=== PATIENT | male | born 1985 | race Caucasian/White ===

== ENCOUNTER 2019-06-05 10:11 | Emergency (ER) | payer OTHER, SELFPAY ==
[2019-06-05 10:23] VITALS: BP 142/79; PULSE 67; RESP 16; TEMP 36.4; O2SAT 99
--- NOTE | 2019-06-05 10:28 | ED.SKABFB ---
HPI - Skin/Abscess/Foreign Bdy General Chief complaint: Skin/Abscess/Foreign Body Stated complaint: Splinter in the bottom of left heel Time Seen by Provider: 06/05/19 10:40 Source: patient and RN notes reviewed Mode of arrival: ambulatory Limitations: no limitations History of Present Illness HPI narrative: 34 year old male who presents to [facility] with complaints of having piece of wood splinter in his left heel. Patient states that a piece of wood from floor at work splintered and went into the heel of his foot, he was able to remove a piece of it but is unable to get remaining piece that he thinks remains in his foot. Small sliver of wood noted to heel of left foot no acute redness or swelling. Patient states that he is aware of piece when he steps down. Patient states that his tetanus shot is over 10 years old. MD complaint: foreign body Onset (ago): day(s) (last night) Tetanus up to date: no Location: L foot Severity: mild Severity scale (1-10): 1 Quality: aching Pain Consistency: other (weight bearing) Relieving factors: none Exacerbating factors: other (walking) Context: none Associated symptoms: denies other symptoms Treatments prior to arrival: other (removed a piece of wood) Related Data Home Medications Medication Instructions Recorded Confirmed No Home Medications 06/05/19 06/05/19 Allergies Allergy/AdvReac Type Severity Reaction Status Date / Time No Known Allergies Allergy Verified 06/05/19 10:29 Review of Systems Review of Systems: Narrative: CONSTITUTIONAL: Denies fever, chills, or sweats. EYES: Denies visual changes, redness, or discharge. ENT: Denies rhinorrhea, congestion, sore throat, or otalgia. CARDIOVASCULAR: Denies chest pain, palpitations, or edema. RESPIRATORY: Denies cough or dyspnea. GASTROINTESTINAL: Denies abdominal pain, nausea, vomiting, or diarrhea. GENITOURINARY: Denies dysuria or hematuria. SKIN: Denies rash or itching, positive for a piece of wood remaining in heel of left foot. MUSCULOSKELETAL: Denies back pain, joint pain, or myalgia. NEUROLOGIC: Denies headache, numbness, or weakness. PSYCHIATRIC: Denies anxiety or depression. All systems reviewed & are unremarkable except as noted in HPI and below PMFSH Past Medical History Medical History (Updated 02/18/20 @ 10:33 by Flor Garcias NP) No significant past medical history Social History Social History (Updated 06/09/19 @ 10:33 by Flor Garcias NP) Smoking status: Smoker, status unknown Living arrangements: alone Gender identity (if verbalized by the patient): Male Comments At time of signature, agree with nursing past medical, social history. There is no relevant family history pertinent to the presenting complaint Exam Narrative: Exam Narrative: GENERAL: Well-appearing, well-nourished, and in no acute distress. HEAD: Normocephalic, atraumatic. EYES: PERRLA and EOMI. ENT: Nares clear, no rhinorrhea or epistaxis. Mucous membranes moist. NECK: Supple. CHEST: Clear to auscultation. No respiratory distress. HEART: Regular rate and rhythm. No murmur heard. Normal peripheral pulses. ABDOMEN: Soft, nontender, nondistended, normal active bowel sounds. EXTREMITIES: Normal range of motion. No edema. SKIN: Warm, dry, no rash.Foreign body left heel small splinter embedded in foot patient states he removed some of it but unable to get all of piece of wood.minimal discomfort no drainage or redness. NEURO: No focal deficits. Alert and oriented x3. Course Vital Signs Vital signs: Vital Signs Temperature 36.4 C L 06/05/19 10:23 Pulse Rate 67 06/05/19 10:23 Respiratory Rate 16 06/05/19 10:23 Blood Pressure 142/79 H 06/05/19 10:23 Pulse Oximetry 99 06/05/19 10:23 Temperature 36.4 C L 06/05/19 10:23 Pulse Rate 67 06/05/19 10:23 Respiratory Rate 16 06/05/19 10:23 Blood Pressure 142/79 H 06/05/19 10:23 Pulse Oximetry 99 06/05/19 10:23 Procedures Foreign Body Removal Fo
[2019-06-05] MEDS: TETANUS,DIPHTHERIA,AC PERTUSSIS ADULT 0.5 ML (ADACEL) IM (11:07)
== END 2019-06-05 11:30 | disposition home or self-care (01) ==
PROVIDERS: Emergency Provider Registered Nurse
DX: S91.342A Puncture wound with foreign body, left foot, initial encounter (principal); W45.8XXA Other foreign body or object entering through skin, initial encounter; Z23 Encounter for immunization
CPT/HCPCS: 28190; 90471; 90715; 99202; G0463

== ENCOUNTER 2019-07-15 12:34 | Emergency (ER) | payer OTHER, SELFPAY ==
--- NOTE | ~2019-07-15 | XR_ITS ---
EXAMINATION: XR abdomen/kub 1V INDICATION: Right flank pain, painful urination TECHNIQUE: Supine view of the abdomen is obtained. COMPARISON: None FINDINGS: No abnormal calcifications are identified. The bowel gas pattern is normal. The visualized osseous structures are unremarkable IMPRESSION: 1. No radiographic correlate for the patient's symptoms. Reviewed, dictated and finalized at location B.
--- NOTE | 2019-07-15 12:46 | ED.GENADULT ---
HPI - General Adult General Chief complaint: Urogenital-Male Stated complaint: uti Time Seen by Provider: 07/15/19 13:35 Source: patient Mode of arrival: ambulatory Limitations: no limitations History of Present Illness HPI narrative: 34-year-old male presents to the [facility] with complaints of urinary symptoms for the past 2 to 3 weeks. Patient states that he has had some burning with urination as well as right lower bilateral back pain that at times does radiate to the front groin at times. Denies any fevers, chest pain or shortness of breath. Denies any abdominal pain at this time. Patient states he was tested for STDs about 3 weeks ago and came up negative on everything. Patient states he was tested at the [facility]. Patient states he has not had any new partners since being tested 3 weeks ago but continues to have the symptoms. Related Data Home Medications Medication Instructions Recorded Confirmed Men's Multivitamin 07/15/19 Allergies Allergy/AdvReac Type Severity Reaction Status Date / Time No Known Allergies Allergy Verified 06/05/19 10:29 Review of Systems Review of Systems: Narrative: CONSTITUTIONAL: Denies fever, chills, or sweats. EYES: Denies visual changes, redness, or discharge. ENT: Denies rhinorrhea, congestion, sore throat, or otalgia. CARDIOVASCULAR: Denies chest pain, palpitations, or edema. RESPIRATORY: Denies cough or dyspnea. GASTROINTESTINAL: Denies abdominal pain, nausea, vomiting, or diarrhea. GENITOURINARY: Denies dysuria or hematuria. Pain with urination SKIN: Denies rash or itching. MUSCULOSKELETAL: Positive low Back pain, denies joint pain, or myalgia. NEUROLOGIC: Denies headache, numbness, or weakness. PSYCHIATRIC: Denies anxiety or depression. [facility] Past Medical History Medical History No significant past medical history Social History Social History (Updated 06/09/19 @ 10:33 by Flor Garcias NP) Smoking status: Smoker, status unknown Gender identity (if verbalized by the patient): Male Comments At the time of my signature I agree with nursing past medical history, surgical, social, and family history. There is no relevant family history pertinent to the presenting complaint. Exam Narrative: Exam Narrative: GENERAL: Well-appearing, well-nourished, and in no acute distress. HEAD: Normocephalic, atraumatic. EYES: PERRLA and EOMI. ENT: Nares clear, no rhinorrhea or epistaxis. Mucous membranes moist. Bilateral TMs are clear with no erythema or foreign bodies in the canal. Posterior pharynx no erythema, tonsil enlargement, exudates or lesions present. NECK: Supple. No lymphadenopathy CHEST: Clear to auscultation. No respiratory distress. HEART: Regular rate and rhythm. No murmur heard. Normal peripheral pulses. ABDOMEN: Soft, nontender, nondistended, normal active bowel sounds. No CVA tenderness on percussion. EXTREMITIES: Normal range of motion. No edema. SKIN: Warm, dry, no rash. NEURO: No focal deficits. Alert and oriented x3. Course Reevaluation(s) Reevaluation #1: Reevaluated patient after his x-ray was resulted. Notify patient that there is no obvious evidence of a kidney stone. Discussed with him that we will go ahead and try antibiotics to see if this is a UTI and we will send his urine off to the lab for culture. Discussed with patient that if his symptoms continue not to get better than he will need to follow-up with his primary doctor for further investigation of what could be causing his symptoms. Patient verbalized understanding at this time denies any other questions or concerns. Date: 07/15/19 Time: 14:08 Vital Signs Vital signs: Vital Signs Temperature 36.8 C 07/15/19 12:54 Pulse Rate 78 07/15/19 12:54 Respiratory Rate 16 07/15/19 12:54 Blood Pressure 126/78 07/15/19 12:54 Pulse Oximetry 99 07/15/19 12:54 Temperature 36.8 C 07/15/19 12:5
[2019-07-15 12:54] VITALS: BP 126/78; PULSE 78; RESP 16; TEMP 36.8; O2SAT 99
--- NOTE | 2019-07-15 12:54 | PC.NURSE ---
in br to obtain ua spec.
== END 2019-07-15 14:16 | disposition home or self-care (01) ==
PROVIDERS: Emergency Provider Nurse Practitioner Family
DX: R30.0 Dysuria (principal); Z86.61 Personal history of infections of the central nervous system
CPT/HCPCS: 74018; 81003; 87086; 99213; G0463

== ENCOUNTER 2019-10-21 09:07 | Emergency (ER) | payer OTHER, SELFPAY ==
--- NOTE | 2019-10-21 09:21 | ED.GENADULT ---
HPI - General Adult General Chief complaint: Skin/Abscess/Foreign Body Stated complaint: eczema Time Seen by Provider: 10/21/19 09:20 Source: patient Mode of arrival: ambulatory Limitations: no limitations History of Present Illness HPI narrative: 34-year-old male patient presents today express care with complaints of a rash to bilateral hands. Patient states he does have a history of eczema. 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 Discussed with him that the gloves are aggravating his eczema and breaking him out. Patient states he was given a steroid ointment and states he has been through 2 over within the last couple of weeks. Patient denies any rash anywhere else except for the hands at this time. Denies any fevers, chest pain or shortness of breath. Related Data Allergies Allergy/AdvReac Type Severity Reaction Status Date / Time No Known Allergies Allergy Unknown Verified 02/20/15 17:56 Review of Systems Review of Systems: Narrative: CONSTITUTIONAL: Denies fever, chills, or sweats. EYES: Denies visual changes, redness, or discharge. ENT: Denies rhinorrhea, congestion, sore throat, or otalgia. CARDIOVASCULAR: Denies chest pain, palpitations, or edema. RESPIRATORY: Denies cough or dyspnea. GASTROINTESTINAL: Denies abdominal pain, nausea, vomiting, or diarrhea. GENITOURINARY: Denies dysuria or hematuria. SKIN: Positive rash to bilateral hands MUSCULOSKELETAL: Denies back pain, joint pain, or myalgia. NEUROLOGIC: Denies headache, numbness, or weakness. PSYCHIATRIC: Denies anxiety or depression. [facility] Past Medical History Medical History (Updated 10/21/19 @ 09:37 by MARYCARMEN [place]) Eczema Comments At the time of my signature I agree with nursing past medical history, surgical, social, and family history. There is no relevant family history pertinent to the presenting complaint. Exam Narrative: Exam Narrative: GENERAL: Well-appearing, well-nourished, and in no acute distress. HEAD: Normocephalic, atraumatic. EYES: PERRLA and EOMI. ENT: Nares clear, no rhinorrhea or epistaxis. Mucous membranes moist. NECK: Supple. No lymphadenopathy CHEST: Clear to auscultation. No respiratory distress. HEART: Regular rate and rhythm. No murmur heard. Normal peripheral pulses. ABDOMEN: Soft, nontender, nondistended, normal active bowel sounds. EXTREMITIES: Normal range of motion. No edema. SKIN: Patient has patient has red. Neck rash noted to bilateral dorsal hands. The rash does seem to be more and between the webs of the fingers. It is a blotchy rash with some areas very small papules. No open wounds or drainage at this time. NEURO: No focal deficits. Alert and oriented x3. Course Vital Signs Vital signs: Vital Signs Temperature 36.4 C L 10/21/19 09:22 Pulse Rate 73 10/21/19 09:22 Respiratory Rate 16 10/21/19 09:22 Blood Pressure 154/92 H 10/21/19 09:22 Pulse Oximetry 99 10/21/19 09:22 Temperature 36.4 C L 10/21/19 09:22 Pulse Rate 73 10/21/19 09:22 Respiratory Rate 16 10/21/19 09:22 Blood Pressure 154/92 H 10/21/19 09:22 Pulse Oximetry 99 10/21/19 09:22 Vital signs reviewed. The patient has been informed that they may have pre-hypertension or Hypertension based on a BP reading in the department. I recommend that the patient call the primary care provider listed on their discharge instructions or a physician of their choice this week to arrange follow up for further evaluation of possible pre-hypertension or Hypertension Medical Decision Making Differential Diagnosis Differential Diagnosis: Differential diagnosis: Contact dermatitis, poison vinny, poison sumac, psoriasis, eczema, allergic reaction, drug reaction, scabies, tinea syphilis, lung disease, viral exanthema, pityriasis, erythema multiforme. Cussed with patient that we will go ahead and refill his steroid ointment that has been helping his eczem
[2019-10-21 09:22] VITALS: BP 154/92; PULSE 73; RESP 16; TEMP 36.4; O2SAT 99
== END 2019-10-21 09:41 | disposition home or self-care (01) ==
PROVIDERS: Emergency Provider Nurse Practitioner Family; PCP Internal Medicine
DX: L20.9 Atopic dermatitis, unspecified (principal); R03.0 Elevated blood-pressure reading, without diagnosis of hypertension
CPT/HCPCS: 99213; G0463

== ENCOUNTER 2020-09-20 18:36 | Emergency (ER) | payer OTHER, SELFPAY ==
[2020-09-20 18:52] VITALS: BP 153/80; PULSE 87; RESP 16; TEMP 36.6; O2SAT 99
--- NOTE | 2020-09-20 19:36 | ED.SKABFB ---
HPI - Skin/Abscess/Foreign Bdy General Chief complaint: Skin/Abscess/Foreign Body Stated complaint: rash Time Seen by Provider: 09/20/20 19:34 Source: patient and RN notes reviewed Mode of arrival: ambulatory Limitations: no limitations History of Present Illness HPI narrative: Patient presents today requesting a refill of his clobetasol ointment for his eczema. States it has slightly flared due to some increased sun exposure recently. MD complaint: rash and other (Medication refill) Related Data Allergies Allergy/AdvReac Type Severity Reaction Status Date / Time No Known Allergies Allergy Unknown Verified 09/20/20 19:21 Review of Systems Review of Systems: Narrative: CONSTITUTIONAL: Denies body aches, fever, chills, or sweats. EYES: Denies visual changes, redness, or discharge. ENT: Denies rhinorrhea, congestion, sore throat, or otalgia. CARDIOVASCULAR: Denies chest pain, palpitations, or edema. RESPIRATORY: Denies cough or dyspnea. GASTROINTESTINAL: Denies abdominal pain, nausea, vomiting, or diarrhea. GENITOURINARY: Denies dysuria or hematuria. SKIN: Denies itching, or wounds.+ Eczema MUSCULOSKELETAL: Denies back pain, joint pain, or myalgia. NEUROLOGIC: Denies headache, numbness, tingling, or weakness. PSYCH: Denies depression or anxiety. PMFSH Past Medical History Medical History Eczema No significant past medical history Social History Social History Smoking status: Smoker, status unknown Gender identity (if verbalized by the patient): Male Comments At time of signature, I have reviewed and agree with nursing past medical, surgical, social and family history unless otherwise noted. Please see nursing chart for further information. There is no relevant family history pertinent to the presenting complaint Exam Narrative: Exam Narrative: GENERAL: Well-appearing, well-nourished, and in no acute distress. HEAD: Normocephalic, atraumatic. EYES: EOMI. No redness or drainage. Conjunctivae normal. ENT: Mucous membranes pink and moist. NECK: Normal AROM. CHEST: No respiratory distress. EXTREMITIES: Normal range of motion. No edema. SKIN: Warm, dry. Capillary refill normal. Normal skin turgor. Mild to moderate eczematous rash to the dorsum of bilateral hands. NEURO: No focal deficits. Alert and oriented x3. Gait steady. PSYCH: Normal affect. No signs of depression or anxiety. Course Vital Signs Vital signs: Vital Signs Temperature 97.8 F 09/20/20 18:52 Pulse Rate 87 09/20/20 18:52 Respiratory Rate 16 09/20/20 18:52 Blood Pressure 153/80 H 09/20/20 18:52 Pulse Oximetry 99 09/20/20 18:52 Temperature 97.8 F 09/20/20 18:52 Pulse Rate 87 09/20/20 18:52 Respiratory Rate 16 09/20/20 18:52 Blood Pressure 153/80 H 09/20/20 18:52 Pulse Oximetry 99 09/20/20 18:52 Reviewed. Pt has been instructed to follow up with his PCP regarding his elevated blood pressure today. MDM - Skin/Abscess/Foreign Bdy Differential Diagnosis Differential diagnosis: Likely urticaria, cellulitis, eczema, impetigo and contact dermatitis Critical Care Time Critical Care Time Critical Care Time: No Discharge Plan Discharge Clinical Impression: Medication refill Eczema Qualifiers: Eczema type: unspecified Qualified Code(s): L30.9 - Dermatitis, unspecified Patient Disposition: Home, Self-Care Condition: Stable Instructions: Eczema (ED) Additional Instructions: Your eczema medication has been refilled. Please follow-up with your PCP with any additional concerns. Your blood pressure was elevated above 120/80 today at Urgent Care. This puts you above the threshold for follow up. Please schedule a followup visit with your personal physician as soon as possible, for further evaluation and treatment. Even blood pressure exceeding 120/80 may indicate pre-hyperten
== END 2020-09-20 19:41 | disposition home or self-care (01) ==
PROVIDERS: Emergency Provider Nurse Practitioner
DX: Z76.0 Encounter for issue of repeat prescription (principal); L30.9 Dermatitis, unspecified
CPT/HCPCS: 99213; G0463